=== PATIENT | female | born 1970 | race Caucasian/White ===

== ENCOUNTER 2017-07-10 07:42 | Day surgery (SDC) | payer BC ==
[~2017-07-10] VITALS: Ht 161.3 cm; Wt 104.3 kg
[~2017-07-10 07:42] MED LIST: AZASAN100 MG PO; CARVEDILOL12.5 MG PO; CIPRO500 MG PO; DICLOFENAC SODI75 MG PO; DYAZIDE, MA1 CAPSULE PO; EFFEXOR75 MG PO; ERGOCALCIF50000 UNIT PO; MICRO-K10 ME2 PO; OXYCODONE HCL10 MG PO; OXYCODONE HCL5 MG PO; PROAIR HFA8.5 GM IH; SERTRALINE HCL100 MG PO; TORADOL10 MG PO; VITAMIN D31000 UNIT PO
== END 2017-07-10 08:46 | disposition home or self-care (01) ==
LOC: PAIN 07:42 → SDC 08:00 → PAIN 08:00
DX: M47.816 Spondylosis without myelopathy or radiculopathy, lumbar region (principal); M54.5 Low back pain; G89.29 Other chronic pain; M17.0 Bilateral primary osteoarthritis of knee; D86.9 Sarcoidosis, unspecified; I10 Essential (primary) hypertension; Z79.891 Long term (current) use of opiate analgesic; E66.3 Overweight; Z68.41 Body mass index [BMI] 40.0-44.9, adult; K21.9 Gastro-esophageal reflux disease without esophagitis; F17.200 Nicotine dependence, unspecified, uncomplicated
CPT/HCPCS: J1030; J2250; J3010; S0020

== ENCOUNTER 2017-07-17 07:09 | Day surgery (SDC) | payer BC ==
[~2017-07-17] VITALS: Ht 161.3 cm; Wt 104.3 kg
== END 2017-07-17 09:12 | disposition home or self-care (01) ==
LOC: PAIN 07:09 → SDC 08:00 → PAIN 09:12
DX: M47.816 Spondylosis without myelopathy or radiculopathy, lumbar region (principal); M54.5 Low back pain; G89.29 Other chronic pain; M17.0 Bilateral primary osteoarthritis of knee; M16.0 Bilateral primary osteoarthritis of hip; D86.9 Sarcoidosis, unspecified; I10 Essential (primary) hypertension; K76.0 Fatty (change of) liver, not elsewhere classified; J45.909 Unspecified asthma, uncomplicated; F17.200 Nicotine dependence, unspecified, uncomplicated; Z88.0 Allergy status to penicillin; Z79.891 Long term (current) use of opiate analgesic; Z96.652 Presence of left artificial knee joint
CPT/HCPCS: J1030; S0020

== ENCOUNTER 2017-12-13 06:54 | Day surgery (SDC) | payer BC ==
[~2017-12-13] VITALS: Ht 160 cm; Wt 87.1 kg
[~2017-12-13 06:54] MED LIST changes: +MAXZIDE 37.5 M1 EACH PO
== END 2017-12-13 08:43 | disposition home or self-care (01) ==
LOC: PAIN 06:54
DX: M47.816 Spondylosis without myelopathy or radiculopathy, lumbar region (principal); M51.36 Other intervertebral disc degeneration, lumbar region; M16.0 Bilateral primary osteoarthritis of hip; M17.0 Bilateral primary osteoarthritis of knee; I10 Essential (primary) hypertension; K76.0 Fatty (change of) liver, not elsewhere classified; D86.9 Sarcoidosis, unspecified; J45.909 Unspecified asthma, uncomplicated; Z88.0 Allergy status to penicillin; Z88.2 Allergy status to sulfonamides; Z79.891 Long term (current) use of opiate analgesic; F17.200 Nicotine dependence, unspecified, uncomplicated
CPT/HCPCS: 93005; J1030; J1885; J2250; S0020

== ENCOUNTER 2017-12-20 06:54 | Day surgery (SDC) | payer BC ==
[~2017-12-20] VITALS: Ht 160 cm; Wt 87.1 kg
== END 2017-12-20 09:00 | disposition home or self-care (01) ==
LOC: PAIN 06:54 → SDC 07:30 → PAIN 07:30
DX: M47.816 Spondylosis without myelopathy or radiculopathy, lumbar region (principal); M51.36 Other intervertebral disc degeneration, lumbar region; M16.0 Bilateral primary osteoarthritis of hip; M17.0 Bilateral primary osteoarthritis of knee; I10 Essential (primary) hypertension; D86.9 Sarcoidosis, unspecified; F17.200 Nicotine dependence, unspecified, uncomplicated; Z79.891 Long term (current) use of opiate analgesic
CPT/HCPCS: 80048; J1030; J2250; S0020